=== PATIENT | male | born 1950 | race Caucasian/White ===

== ENCOUNTER → 2018-04-18 | Day surgery (SDC) | payer OTHER ==
[~2018-04-18] MED LIST: LIDOCAINE 1% PF 2 ML VIAL. ID; LIDOCAINE 2% PF Vial for OR 5 ML VIAL.; MIDAZOLAM HCL/PF 2 MG/2 ML VIAL. IV; PROPOFOL 40 ML IV; fentaNYL PF VIAL 100 MCG/2 ML VIAL IV
[2018-04-18] MEDS: IV RINGERS,LACTATED 1000ML 1,000 ML IV (08:10)
== END | disposition home or self-care (01) ==
LOC: ENDOS 07:39
DX: Z12.11 Encounter for screening for malignant neoplasm of colon (principal); K64.0 First degree hemorrhoids; K22.2 Esophageal obstruction; K21.0 Gastro-esophageal reflux disease with esophagitis; I10 Essential (primary) hypertension; Z88.5 Allergy status to narcotic agent; Z87.891 Personal history of nicotine dependence; M19.90 Unspecified osteoarthritis, unspecified site; Z88.6 Allergy status to analgesic agent; Z88.8 Allergy status to other drugs, medicaments and biological substances; Z79.899 Other long term (current) drug therapy; Z87.19 Personal history of other diseases of the digestive system
CPT/HCPCS: 43239; 45378; 88305; J2704

== ENCOUNTER 2019-06-06 07:47 | Day surgery (SDC) | payer OTHER ==
[~2019-06-06] VITALS: Ht 180.3 cm; Wt 89.0 kg
[~2019-06-06 07:47] MED LIST changes: +ALBU2.5V8 INH; +ALPH600C5 PO; +AMLO5TAB4 PO; +BUPIVACAINE-EPI 0.25%-1:200000 MPF 30 ML VIAL. ONE; +BUPR100T7 PO; +CALC-31 PO; +CALC500T30 PO; +CICL6.1H3 IH; +DULO60CA6 PO; +HYDR-2145 PO; +HYDROmorphone 2 MG/ML VIAL IV PRN; +ISOSULFAN BLUE 50 MG/5 ML VIAL. SQ ONE; +IV RINGERS,LACTATED 1000ML 1,000 ML IV SCH; -LIDOCAINE 1% PF 2 ML VIAL. ID; +LIDOCAINE 1% PF 2 ML VIAL. ID PRN; -LIDOCAINE 2% PF Vial for OR 5 ML VIAL.; +LISI-334 PO; -MIDAZOLAM HCL/PF 2 MG/2 ML VIAL. IV; +MORPHINE SULFATE 2 MG/ML VIAL. IV PRN; +NAPR500T8 PO; +NIAC500T26 PO; +ONDANSETRON PF 4 MG/2 ML VIAL. IV PRN; +PANT20TA2 PO; -PROPOFOL 40 ML IV; +TAMS0.4C97 PO; -fentaNYL PF VIAL 100 MCG/2 ML VIAL IV; +fentaNYL PF VIAL 100 MCG/2 ML VIAL IV PRN
[2019-06-06] MEDS ORDERED: ONDANSETRON PF 4 MG/2 ML VIAL. ONE (08:18)
[2019-06-06] MEDS ORDERED: PROPOFOL 20 ML IV ONE (08:18)
[2019-06-06] MEDS ORDERED: DEXAMETHASONE SOD PHOS 20 MG/5 ML VIAL. ONE (08:18)
[2019-06-06] MEDS ORDERED: fentaNYL PF VIAL 100 MCG/2 ML VIAL ONE (08:18)
[2019-06-06] MEDS ORDERED: LIDOCAINE 2% PF 5 ML VIAL. ONE (08:18)
[2019-06-06] MEDS ORDERED: MIDAZOLAM HCL/PF 2 MG/2 ML VIAL. ONE (08:19)
[2019-06-06] MEDS ORDERED: LIDOCAINE WITH 8.4% SOD BICARB 3 ML DISP.SYRIN. INJ ONE (08:30)
[2019-06-06] MEDS ORDERED: CLIN300C8 PO (08:38)
[2019-06-06] MEDS ORDERED: ACETAMINOPHEN 500 MG TABLET PO ONE (08:45)
--- NOTE | 2019-06-06 08:56 | PDOC1 ---
History and Physical Date of Admission Date of Admission DATE: 06/06/19 TIME: 08:53 Identification/Chief Complaint Chief Complaint Melanoma right arm Source Source: Patient History of Present Illness History of Present Illness 68-year-old male recently had excisional biopsy of a mass on the posterior right upper arm pathology shows this to be melanoma 1 mm depth with no ulceration. He is here for wide excision and sentinel lymph node biopsy. Past Medical History Cardiovascular: HTN, Hyperlipidemia Pulmonary: Asthma Past Surgical History Past Surgical History: Appendectomy, Other (abdominal surgery and brain surgery) Family History Family History: No Significant Social History Smoke: No ALCOHOL: none Drugs: None Current Medications Current Medications Current Medications Ondansetron HCl (Zofran) 4 mg PRN Q6HRS PRN IV NAUSEA/VOMITING; Start 06/06/19 at 07:00; Stop 06/07/19 at 06:59 Fentanyl Citrate (Fentanyl 2ml Vial) 25 mcg PRN Q5MIN PRN IV MILD PAIN 1-3; Start 06/06/19 at 07:00; Stop 06/07/19 at 06:59 Fentanyl Citrate (Fentanyl 2ml Vial) 50 mcg PRN Q5MIN PRN IV MODERATE TO SEVERE PAIN; Start 06/06/19 at 07:00; Stop 06/07/19 at 06:59 Morphine Sulfate (Morphine Sulfate) 1 mg PRN Q10MIN PRN IV SEVERE PAIN 7-10; Start 06/06/19 at 07:00; Stop 06/07/19 at 06:59 Ringer's Solution 1,000 ml @ 30 mls/hr Q24H IV Last administered on 06/06/19at 08:32; Start 06/06/19 at 07:00; Stop 06/06/19 at 18:59 Lidocaine HCl (Xylocaine-Mpf 1% 2ml Vial) 2 ml PRN 1X PRN ID PRIOR TO IV START; Start 06/06/19 at 07:00; Stop 06/07/19 at 06:59 Hydromorphone HCl (Dilaudid) 0.5 mg PRN Q10MIN PRN IV SEV PAIN, Second choice; Start 06/06/19 at 07:00; Stop 06/07/19 at 06:59 Cefazolin Sodium/ Dextrose 50 ml @ 100 mls/hr 1X ONCE IV ; Start 06/06/19 at 06:00; Stop 06/06/19 at 06:29; Status DC Isosulfan Blue (Isosulfan Blue) 50 mg STK-MED ONCE SQ ; Start 06/06/19 at 06:17; Stop 06/06/19 at 07:18; Status DC Bupivacaine HCl/ Epinephrine Bitart (Sensorcaine-Epi 0.25%-1:[id number] Mpf) 30 ml STK-MED ONCE .ROUTE ; Start 06/06/19 at 06:17; Stop 06/06/19 at 07:18; Status DC Propofol 20 ml @ As Directed STK-MED ONCE IV ; Start 06/06/19 at 08:18; Stop 06/06/19 at 08:19; Status DC Lidocaine HCl (Lidocaine Pf 2% Vial) 5 ml STK-MED ONCE .ROUTE ; Start 06/06/19 at 08:18; Stop 06/06/19 at 08:19; Status DC Dexamethasone Sodium Phosphate (Decadron) 20 mg STK-MED ONCE .ROUTE ; Start 06/06/19 at 08:18; Stop 06/06/19 at 08:19; Status DC Ondansetron HCl (Zofran) 4 mg STK-MED ONCE .ROUTE ; Start 06/06/19 at 08:18; Stop 06/06/19 at 08:19; Status DC Fentanyl Citrate (Fentanyl 2ml Vial) 100 mcg STK-MED ONCE .ROUTE ; Start 06/06/19 at 08:18; Stop 06/06/19 at 08:19; Status DC Midazolam HCl (Versed) 2 mg STK-MED ONCE .ROUTE ; Start 06/06/19 at 08:19; Stop 06/06/19 at 08:20; Status DC Lidocaine/Sodium Bicarbonate (Buffered Lidocaine 1%) 3 ml 1X ONCE INJ ; Start 06/06/19 at 08:30; Stop 06/06/19 at 08:31; Status DC Acetaminophen (Tylenol) 1,000 mg 1X ONCE PO Last administered on 06/06/19at 08:44; Start 06/06/19 at 08:45; Stop 06/06/19 at 08:46 Active Scripts Active Reported Clindamycin Hcl 300 Mg Capsule 300 Mg PO TID Calcium 500 + D Tablet (Calcium Carbonate/Vitamin D3) 1 Each Tablet 1 Each PO DAILY PRN Cymbalta (Duloxetine Hcl) 60 Mg Capsule.dr 1 Cap PO DAILY Alvesco (Ciclesonide) 6.1 Gm Hfa.aer.ad 6.1 Gm IH Proair Hfa Inhaler (Albuterol Sulfate) 8.5 Gm Hfa.aer.ad 1 Puff INH PRN Q6HRS PRN Lisinopril 20 Mg Tablet 20 Mg PO DAILY Niacin (Niacinamide) 500 Mg Tablet 500 Mg PO Protonix (Pantoprazole Sodium) 20 Mg Tablet.dr 40 Mg PO DAILY Norvasc (Amlodipine Besylate) 5 Mg Tablet 5 Mg PO DAILY Flomax (Tamsulosin Hcl) 0.4 Mg Cap.er.24h 0.4 Mg PO DAILY Allergies Allergies: Coded Allergies: aspirin (Verified Allergy, Severe, breathing, 06/05/19) chlorpromazine (Verified Allergy, Severe, breathing, 06/05/19) mold (Verified Allergy, Unknown, 05/30/19) Uncoded Allergies: DUST (Allergy, Unknown, 05/30/19) Physical Exam General: Alert, Oriented X3, Cooperative, No acute distress HEENT: Atraumatic, PERRLA, EOMI Lungs: Clear to auscultation, Normal air movement Heart: RRR, no murmurs Abdomen: Normal bowel sounds, Soft, No tenderness Rectal Exam: not examined Extremities: Other (melanoma right posterior upper arm biopsy site well healed) Vitals Vitals Vital Signs Date Time Temp Pulse Resp B/P (MAP) Pulse Ox O2 Delivery O2 Flow Rate FiO2 06/06/19 08:29 97.4 51 16 167/93 100 97.4 VTE Prophylaxis Ordered VTE Prophylaxis Devices: Yes VTE Pharmacological Prophylaxi: Contraindicated Assessment/Plan Assessment/Plan Melanoma right upper arm plan wide excision and sentinel lymph node biopsy JULIET ORTIZ MD Jun 06, 2019 08:56
[2019-06-06] MEDS ORDERED: SEVOFLURANE 31 TO 60 MINUTES. IH ONE (10:03)
[2019-06-06] MEDS ORDERED: GLYCOPYRROLATE 1 MG/5 ML VIAL. ONE (10:14)
[2019-06-06] MEDS ORDERED: PHENYLEPHRINE in 0.9% NACL PF 1 MG/10 ML SYRINGE. IV ONE (10:24)
--- NOTE | 2019-06-06 11:15 | PDOC4 ---
Operative Note Operative Note Date: 06/06/2019 Preoperative diagnosis: Melanoma right upper arm Postoperative diagnosis: Same Procedure: Wide excision of melanoma 2 cm margin and sentinel lymph node biopsy Surgeon: Nahum Specimen: Right upper arm wide excision 2 sentinel lymph nodes from right axilla Dictation: Patient is a 68-year-old gentleman had a excisional biopsy done of a skin lesion on the posterior upper arm right side this was 1 mm requiring wide excision and lymph node evaluation. Procedure of wide excision and sentinel lymph node biopsy was explained to the patient detail risk benefits were also discussed including bleeding infection alternatives to this procedure also discussed the patient seemed to understand and gave both verbal and written consent had the procedure performed. Patient was taken to radiology where radiotracer was injected and is brought to the operating room placed in supine position general anesthesia was initiated once patient was sleep and intubated his right arm and axilla were prepped and draped in circumferentially with ChloraPrep. Around the previous biopsy site was injected with Lymphazurin years and total and massaged for 5 minutes. The axilla was then evaluated for radiotracer was quite hot and area this area was injected percent Marcaine with epinephrine incision made 15 blade scalpel was carried into the simultaneous tissue using cautery brought hemostasis difficulty 2 nodes were removed and were quite hot and blue was also some axillary tissue sent for pathology. Attention was then turned to wide excision 2 cm margin around the previous biopsy site was marked this was excised elliptically carried down to the fascia. The specimen was marked with sutures with the short stitch being the distal and long stitch being proximal and double stitch being lateral. Wide excision wound was closed in 2 layers deep running 3-0 Vicryl and the skin was approximate for septic and a Monocryl Mastisol Steri-Strips and an Ashok wrap were used to dress the arm ax illa was closed with running 2-0 Vicryl and skin was approximate for septic and a Monocryl. Mastisol Steri-Strips and 4 x 4's were applied as a dressing. Patient was awakened and asked bated operating room taken to recovery in stable condition all sponge instrument needle counts listed as correct estimate blood loss 10 mL JULIET ORTIZ MD Jun 06, 2019 11:15
--- NOTE | 2019-06-06 11:18 | DISCH ---
DISCHARGE INSTRUCTIONS Condition on Discharge Condition on Discharge: Stable Activity After Discharge Activity Instructions for Disc: Avoid exertion Diet after Discharge Diet after Discharge: Regular Wound Incision Care Other wound/incision instructi: a shower in 24 hours Contacting the DRNeela after DC Call your doctor for: If your condition worsens Follow-Up Follow up with: Dr. Ortiz in 2 weeks JULIET ORTIZ MD Jun 06, 2019 11:18
[2019-06-06] MEDS ORDERED: HYDROcodone/APAP 5/325MG 1 TAB TABLET PO PRN ×2 (12:00)
[2019-06-06 12:20] VITALS: BP 129/76
--- NOTE | 2019-06-07 13:54 | RAD ---
Subcutaneous administration of technetium 99m labeled sulfur colloid for intraoperative sentinel lymph node identification. 06/06/2019 Indication: Melanoma Discussion: The risks and benefits of the procedure were discussed the patient. Informed consent was obtained. Approximately 1 mCi of technetium 99m labeled sulfur colloid was administered in 4 injections surrounding a scar just above the right elbow, at the melanoma resection site. Sterile dressings were applied. No immediate complications were identified. Impression: Subcutaneous administration of technetium 99m labeled sulfur colloid for intraoperative assessment: Identification
--- NOTE | 2019-06-14 14:07 | PATHOLOGY ---
[facility] Accession Number: [id number] . 01 Material submitted: . PART A: axillary tail of breast - AXILLARY TISSUE PART B: lymph node - SLN #1 PART C: lymph node - SLN #2 PART D: arm - WIDE EXCISION RIGHT UPPER ARM. Modifiers: right, upper . 01 Clinical history: . Melanoma . 02 Diagnosis: A. Fibroadipose tissue, axillary tissue: - No lymph nodes identified. . B. Lymph node, sentinel lymph node #1 hot/blue: - Negative for tumor (0/1). . C. Lymph nodes, sentinel lymph node #2 hot/not blue: - Two lymph nodes negative for tumor (0/2). . D. Skin and subcutaneous tissue, right upper arm wide re-excision: - FOCAL RESIDUAL MALIGNANT MELANOMA, JOSE ALBERTO'S LEVEL II, BRESLOW'S THICKNESS 0.58 MM, WITH SURROUNDING LENTIGINOUS MELANOCYTIC HYPERPLASIA, MARGINS FREE. SEE COMMENT. - Small incidental intradermal nevus. - Seborrheic keratosis. (JPM/db; 06/13/2019) LBQ/06/13/2019 . 02 Comment: The sentinel lymph nodes are examined at multiple levels. In addition, immunoperoxidase stains for melanoma (PANMELRED) are obtained and yield the following results: . PANMELRED (B1): Negative for tumor PANMELRED (B2): Negative for tumor PANMELRED (B3): Negative for tumor PANMELRED (B4): Negative for tumor PANMELRED (C1): Negative for tumor PANMELRED (C3): Negative for tumor . Thus, there are a total of three sentinel lymph nodes which are negative for metastatic melanoma. . Sections of the right upper arm wide re-excision show focal residual malignant melanoma, Jose Alberto's level II, Breslow's thickness 0.58 mm, with entiginous melanocytic hyperplasia. An immunoperoxidase stain for PANMELRED is obtained on block D6, and is negative because the focus of residual melanoma appears to be absent in the deeper section. The residual invasive melanoma measures approximately 19.5 mm to the deep margin, and both side margins are free of melanoma. There is a small incidental intradermal nevus in section D2, and a small seborrheic keratosis in section D8. The case is also examined by Dr. Westbrook, Dermatopathologist, who concurs with the above diagnosis. (JPM/db; 06/13/2019) . Special stain performed: Immunoperoxidase stains for PANMELRED on B1, B2, B3, B4, C1 and C3. . 02 Electronically signed: . Timoteo Booker MD, Pathologist NPI- [id number] . 01 Gross description: . A. The specimen is received in formalin, labeled "Christiano Vincent, axillary tissue" and consists of a segment of yellow orange lobulated tissue measuring 5.0 x 3.6 x 1.8 cm. Present within are 3 lymph node candidates measuring between 0.1 cm and 0.3 cm which are entirely submitted in A1. Additional tissue is submitted in A2-A4. . B. The specimen is received in formalin, labeled "Christiano Vincent, SLN 1 hot/blue" and consists of a segment of yellow lobulated tissue measuring 4.2 x 3.4 x 1.5 cm. Present within is a lymph node candidate measuring 2.3 x 2.0 x 0.9 cm which is entirely submitted in B1-B4 . C. The specimen is received in formalin, labeled "Christiano Vincent, SLN 2 hot/not blue" and consists of a segment of yellow-orange lobulated tissue measuring 3.0 x 2.1 x 1.3 cm. Present within is a lymph node candidate measuring 1.5 x 1.4 x 0.7 cm. Sectioning reveals pink-khanna cut surface. The candidate is entirely submitted in C1 and the rest of the specimen in cassettes C2-C3. . D. The specimen is received in formalin, labeled "Christiano Vincent, wide excision right upper arm" and consists of a blue dyed oriented skin ellipse measuring 7.7 x 3.9 x 1.1 cm. A long suture at one tip/end designates proximal (12:00), a short suture at the opposite tip/end designates distal (6:00), and a double stitch in the middle of one side designates lateral (9:00). It is inked as follows: 12-3:00 yellow, 3-6:00 blue, 6-9-12 o'clock black. Present on the surface is a well healed previous biopsy site/scar measuring 1.1 x 1.0 cm which extends 1.2 cm from the nearest peripheral edge (9:00). A slightly raised lesion is present, 0.9 cm from the 6:00 tip and 0.4 cm from the 6-7:00 peripheral edge which measures 0.3 x 0.3 cm. Sectioning reveals extensively blue dyed cut surfaces throughout. Chimney Sweeper sections to include the entire previous biopsy site are submitted as follows: . D1: Trisected 12:00 tip D2-D7: Entire previous biopsy site D8: Lesion near 6:00 tip D9: 6:00 tip, bisected (SDY; 06/07/2019) SYU/SYU . 02 Pathologist provided ICD-10: C43.61, D22.61, L82.1 . 02 CPT . 280528, 300451, 637713, 933401, [id number] Specimen Comment: A courtesy copy of this report has been sent to Specimen Comment: [phone]. Specimen Comment: Report sent to Performed at: [facility] [address], [place] [id number] MD Ayan Diaz MD Phone: [phone] Performed at: 02 [facility] [address], [place] [id number] MD Timoteo Booker MD Phone: [phone]
== END 2019-06-06 12:40 ==
LOC: SURG 07:47 → EEVIPCON 09:45 → EDBD 10:15 → SURG 12:40
PROVIDERS: ATTEND Surgery
DX: C43.61 Malignant melanoma of right upper limb, including shoulder (principal); R59.1 Generalized enlarged lymph nodes
CPT/HCPCS: 38525; 38792; 88304; 88305; 88307; 88342; 96374; A7015; A9541; J0696; J1100; J2001; J2250; J2370; J2405; J2704; J3010; J3490; Q9968

== ENCOUNTER 2020-01-26 22:02 | Inpatient (IN) | payer OTHER ==
[~2020-01-26] VITALS: Ht 180.3 cm; Wt 92.4 kg
[~2020-01-26 22:02] MED LIST changes: -BUPIVACAINE-EPI 0.25%-1:200000 MPF 30 ML VIAL. ONE; +CLIN300C8 PO; -HYDROmorphone 2 MG/ML VIAL IV PRN; -ISOSULFAN BLUE 50 MG/5 ML VIAL. SQ ONE; -IV RINGERS,LACTATED 1000ML 1,000 ML IV SCH; -LIDOCAINE 1% PF 2 ML VIAL. ID PRN; -MORPHINE SULFATE 2 MG/ML VIAL. IV PRN; -ONDANSETRON PF 4 MG/2 ML VIAL. IV PRN; -fentaNYL PF VIAL 100 MCG/2 ML VIAL IV PRN
--- NOTE | 2020-01-26 22:51 | PHYS DOC ---
Past Medical History Past Medical History: Hypertension Smoking Status: Unknown if ever smoked Alcohol Use: None The HEART Score for CP Pts HEART Score for Chest Pain: HEART Score for Chest Pain Response (Comments) Value History Slighlty/Non-Suspicious 0 ECG Nonspecific Repolarizatio 1 Age > 65 2 Risk Factors 1 or 2 Risk Factors 1 Troponin >1-<3x Normal Limit 1 Total 5 Risk Factors: Risk Factors: DM, Current or recent (<one month) smoker, HTN, HLP, family history of CAD, obesity. Risk Scores: Score 0 - 3: 2.5% MACE over next 6 weeks - Discharge Home Score 4 - 6: 20.3% MACE over next 6 weeks - Admit for Clinical Observation Score 7 - 10: 72.7% MACE over next 6 weeks - Early Invasive Strategies Adult General Chief Complaint Chief Complaint: CHEST PAIN-CARDIAC NATURE HPI HPI 69-year-old male presents to the emergency department with complaints of chest pain that started around 2019. He describes as a squeezing sensation, worse with deep breath. Patient denies any heart history coronary disease or history of stent placement. Patient received aspirin as well as nitroglycerin prior to his arrival. Heart rate 50, blood pressure 112/51. Nothing makes his pain better. Patient denies any nausea or vomiting, headache or visual change. Patient denies any abdominal pain. It is of note patient is in the custody of correctional facility. Review of Systems Review of Systems Constitutional: Denies fever or chills [] Eyes: Denies change in visual acuity, redness, or eye pain [] HENT: Denies nasal congestion or sore throat [] Respiratory: Denies cough or shortness of breath [] Cardiovascular: No additional information not addressed in HPI [] GI: Denies abdominal pain, nausea, vomiting, bloody stools or diarrhea [] : Denies dysuria or hematuria [] Musculoskeletal: Denies back pain or joint pain [] Integument: Denies rash or skin lesions [] Neurologic: Denies headache, focal weakness or sensory changes [] Endocrine: Denies polyuria or polydipsia [] All other systems were reviewed and found to be within normal limits, except as documented in this note. Current Medications Current Medications Current Medications Medications (Trade) Dose Ordered Sig/Lucien Start Time Stop Time Status Last Admin Dose Admin Acetaminophen (Tylenol) 650 mg PRN Q4HRS PRN 01/26/20 23:30 01/27/20 23:29 UNV Heparin Sodium (Porcine) (Heparin Sodium) 2,400 unit PRN Q6HRS PRN 01/26/20 23:30 UNV Heparin Sodium/ Dextrose 250 ml @ 0 mls/hr CONT PRN 01/26/20 23:30 UNV Morphine Sulfate (Morphine Sulfate) 2 mg PRN Q2HR PRN 01/26/20 23:30 01/27/20 23:29 UNV Ondansetron HCl (Zofran) 4 mg PRN Q8HRS PRN 01/26/20 23:30 01/27/20 23:29 UNV Allergies Allergies Allergies Coded Allergies Type Severity Reaction Last Updated Verified aspirin Allergy Severe breathing 06/05/19 Yes chlorpromazine Allergy Severe breathing 06/05/19 Yes mold Allergy Unknown 05/30/19 Yes Uncoded Allergies Type Severity Reaction Last Updated Verified DUST Allergy Unknown 05/30/19 Physical Exam Physical Exam Constitutional: Well developed, well nourished, no acute distress, non-toxic appearance. [] HENT: Normocephalic, atraumatic, bilateral external ears normal, oropharynx moist, no oral exudates, nose normal. [] Eyes: PERRLA, EOMI, conjunctiva normal, no discharge. [] Neck: Normal range of motion, no tenderness, supple, no stridor. [] Cardiovascular:Heart rate regular rhythm, no murmur [] Lungs & Thorax: Bilateral breath sounds clear to auscultation [] Abdomen: Bowel sounds normal, soft, no tenderness, no masses, no pulsatile masses. [] Skin: Warm, dry, no erythema, no rash. [] Back: No tenderness, no CVA tenderness. [] Extremities: No tenderness, no cyanosis, no clubbing, ROM intact, no edema. [] Neurologic: Alert and oriented X 3, normal motor function, normal sensory function, no focal deficits noted. [] Psychologic: Affect normal, judgement normal, mood normal. [] Current Patient Data Vital Signs Vital Signs Date Time Temp Pulse Resp B/P (MAP) Pulse Ox O2 Delivery O2 Flow Rate FiO2 01/26/20 23:00 24 01/26/20 22:05 97.9 50 112/51 (71) 100 Room Air 97.9 Lab Values Laboratory Tests Test 01/26/20 22:08 White Blood Count 8.5 x10^3/uL (4.0-11.0) Red Blood Count 4.24 x10^6/uL (4.30-5.70) L Hemoglobin 12.4 g/dL (13.0-17.5) L Hematocrit 36.7 % (39.0-53.0) L Mean Corpuscular Volume 87 fL (79-100) Mean Corpuscular Hemoglobin 29 pg (25-35) Mean Corpuscular Hemoglobin Concent 34 g/dL (31-37) Red Cell Distribution Width 14.8 % (11.5-14.5) H Platelet Count 154 x10^3/uL (140-400) Neutrophils (%) (Auto) 64 % (31-73) Lymphocytes (%) (Auto) 25 % (24-48) Monocytes (%) (Auto) 9 % (0-9) Eosinophils (%) (Auto) 2 % (0-3) Basophils (%) (Auto) 1 % (0-3) Neutrophils # (Auto) 5.4 x10^3/uL (1.8-7.7) Lymphocytes # (Auto) 2.1 x10^3/uL (1.0-4.8) Monocytes # (Auto) 0.8 x10^3/uL (0.0-1.1) Eosinophils # (Auto) 0.2 x10^3/uL (0.0-0.7) Basophils # (Auto) 0.0 x10^3/uL (0.0-0.2) Sodium Level 141 mmol/L (136-145) Potassium Level 4.2 mmol/L (3.5-5.1) Chloride Level 106 mmol/L (98-107) Carbon Dioxide Level 27 mmol/L (21-32) Anion Gap 8 (6-14) Blood Urea Nitrogen 17 mg/dL (8-26) Creatinine 1.1 mg/dL (0.7-1.3) Estimated GFR (Cockcroft-Gault) 66.2 BUN/Creatinine Ratio 15 (6-20) Glucose Level 106 mg/dL (70-99) H Calcium Level 9.4 mg/dL (8.5-10.1) Magnesium Level 1.8 mg/dL (1.8-2.4) Total Bilirubin 0.3 mg/dL (0.2-1.0) Aspartate Amino Transferase (AST) 29 U/L (15-37) Alanine Aminotransferase (ALT) 31 U/L (16-63) Alkaline Phosphatase 60 U/L (46-116) Creatine Kinase 192 U/L (39-308) Creatine Kinase MB (Mass) 2.7 ng/mL (0.0-3.6) Creatine Kinase MB Relative Index 1.4 % (0-4) Troponin I Quantitative 0.081 ng/mL (0.000-0.055) TG-Ipf-K-Type Natriuretic Peptide 195 pg/mL (0-124) H Total Protein 6.1 g/dL (6.4-8.2) L Albumin 3.1 g/dL (3.4-5.0) L Albumin/Globulin Ratio 1.0 (1.0-1.7) Laboratory Tests 01/26/20 22:08 Laboratory Tests 01/26/20 22:08 EKG EKG EKG reveals evidence of left bundle branch block, normal axis, heart rate 52 interpretation time 2208 [] Radiology/Procedures Radiology/Procedures [] Course & Med Decision Making Course & Med Decision Making Pertinent Labs and Imaging studies reviewed. (See chart for details) [] 69-year-old male presents to the emergency department with complaints of chest pain that started around 2019. He describes as a squeezing sensation, worse with deep breath. Patient denies any heart history coronary disease or history of stent placement. Patient received aspirin as well as nitroglycerin prior to his arrival. Heart rate 50, blood pressure 112/51. Nothing makes his pain better. Patient denies any nausea or vomiting, headache or visual change. Minnie ent denies any abdominal pain. It is of note patient is in the custody of correctional facility. Laboratory studies reviewed, mild troponin elevation 0.081. Heparin gtt initiated in ER NTG/ASA given prior to arrival NTG SL - dropped BP to the 80's Will apply 1/2 NTG and morphien as needed Cardiology consult HEART Score 5 Dragon Disclaimer Dragon Disclaimer This electronic medical record was generated, in whole or in part, using a voice recognition dictation system. Departure Departure Impression: Primary Impression: Chest pain Additional Impressions: Elevated troponin Hypertension Disposition: ADMITTED INPATIENT Admitting Physician: MEGAN Condition: STABLE Referrals: ALANNAH COSTA DO (PCP) Critical Care Time Critical care time was 35 minutes exclusive of procedures. Problem Qualifiers Primary Impression: Chest pain Chest pain type: unspecified Qualified Codes: R07.9 - Chest pain, unspecified Additional Impressions: Hypertension Hypertension type: essential hypertension Qualified Codes: I10 - Essential (primary) hypertension KIM MOSS MD Jan 26, 2020 22:51
[2020-01-26] MEDS ORDERED: MORPHINE SULFATE 2 MG/ML VIAL. ONE (22:58)
[2020-01-26] MEDS ORDERED: ONDANSETRON PF 4 MG/2 ML VIAL. ONE (22:58)
[2020-01-26 23:00] LABS: BASO % 1 % (0-3); EOS # 0.2 x10^3/uL (0.0-0.7); EOS % 2 % (0-3); HEMATOCRIT 36.7 % (39.0-53.0); HEMOGLOBIN 12.4 g/dL (13.0-17.5); LYMPH # 2.1 x10^3/uL (1.0-4.8); LYMPH % 25 % (24-48); MEAN CORPUSCULAR HEMOGLOBIN 29 pg (25-35); MEAN CORPUSCULAR HGB CONC 34 g/dL (31-37); MEAN CORPUSCULAR VOLUME 87 fL (79-100); MONO # 0.8 x10^3/uL (0.0-1.1); MONO % 9 % (0-9); NEUT # 5.4 x10^3/uL (1.8-7.7); NEUT % 64 % (31-73); PLATELET COUNT 154 x10^3/uL (140-400); RED BLOOD COUNT 4.24 x10^6/uL (4.30-5.70); RED CELL DISTRIBUTION WIDTH 14.8 % (11.5-14.5); WHITE BLOOD COUNT 8.5 x10^3/uL (4.0-11.0)
[2020-01-26] MEDS ORDERED: MORPHINE SULFATE 2 MG/ML VIAL. IV ONE (23:00)
[2020-01-26] MEDS ORDERED: ONDANSETRON PF 4 MG/2 ML VIAL. IVP ONE (23:00)
--- NOTE | 2020-01-26 23:02 | EKG ---
[facility] [address] [place] [address] Test Date: 2020-01-26 Test Time: 22:06:56 Pat Name: NELY GUZMAN Department: Room: Gender: M Fish Icer: : 1950 Requested By: KIM MOSS Order Number: [id number] Reading MD: Measurements Intervals [place] Rate: 52 P: 90 [place]: 214 QRS: 12 QRSD: 146 T: -91 QT: 468 QTc: 437 Interpretive Statements SINUS RHYTHM COMPLEX(ES) WITH ABERRANT INTRAVENTRICULAR CONDUCTION NON SPECIFIC INTRAVENTRICULAR BLOCK ABNORMAL ECG RI6.01 No previous ECG available for comparison
[2020-01-26 23:08] LABS: CALCIUM 9.4 mg/dL (8.5-10.1); CREATININE 1.1 mg/dL (0.7-1.3); GFR 66.2; POTASSIUM 4.2 mmol/L (3.5-5.1)
[2020-01-26 23:13] LABS: ALBUMIN 3.1 g/dL (3.4-5.0); MAGNESIUM 1.8 mg/dL (1.8-2.4); TOTAL BILIRUBIN 0.3 mg/dL (0.2-1.0); TOTAL PROTEIN 6.1 g/dL (6.4-8.2)
[2020-01-26] MEDS ORDERED: ONDANSETRON PF 4 MG/2 ML VIAL. IV PRN (23:45)
[2020-01-26] MEDS ORDERED: HEPARIN for IV BOLUS 10,000 UNIT/10 ML VIAL. IV PRN (23:45)
[2020-01-26] MEDS ORDERED: ACETAMINOPHEN 325 MG TABLET. PO PRN (23:45)
[2020-01-26] MEDS ORDERED: HEPARIN for IV BOLUS 10,000 UNIT/10 ML VIAL. IV ONE (23:45)
[2020-01-26] MEDS ORDERED: NITROGLYCERIN OINT 1 GM PACKET. TP ONE (23:45)
[2020-01-26] MEDS: MORPHINE SULFATE 2 MG/ML VIAL. IV PRN (23:57)
[2020-01-27] VITALS (19 sets, daily range): BP systolic 69–156; BP diastolic 40–79
--- NOTE | 2020-01-27 00:02 | RAD ---
PORTABLE CHEST 1V INDICATION: Chest pain. COMPARISON STUDY: None. FINDINGS: Lungs: Normal lung volume. Right basilar nodular opacities. The tracheobronchial tree and hilar structures are normal. Pleura: No pleural effusion or pneumothorax. Heart and Mediastinum: Cardiomegaly. Atherosclerosis of the thoracic aorta. IMPRESSION: Right basilar nodular opacities, possibly an infectious/inflammatory process. Recommend follow-up PA and lateral chest radiograph in 6-8 weeks after appropriate medical therapy to ensure resolution, given history of malignancy. Electronically signed by: Gary Suarez MD (01/26/2020 11:58 PM) [id number]
[2020-01-27] MEDS: HEPARIN 25,000UTS/250ML PREMIX 250 ML IV PRN ×2 (00:05→20:25)
[2020-01-27] MEDS ORDERED: MAGNESIUM SULFATE 2GM 50 ML IV ONE (03:00)
--- NOTE | 2020-01-27 03:44 | EKG ---
[facility] [address] [place] [address] Test Date: 2020-01-27 Test Time: 03:35:21 Pat Name: NELY GUZMAN Department: Room: 211 Gender: M Zigzag Elastic Attacher: SHANNON : 1950 Requested By: TASNEEM DORMAN Order Number: [id number] Reading MD: Measurements Intervals [place] Rate: 52 P: 56 [place]: 220 QRS: 3 QRSD: 146 T: -56 QT: 450 QTc: 421 Interpretive Statements SINUS RHYTHM PROLONGED [place] INTERVAL LEFT BUNDLE BRANCH BLOCK ABNORMAL ECG RI6.02 No previous ECG available for comparison
[2020-01-27] MEDS: MORPHINE SULFATE 2 MG/ML VIAL. IV PRN ×4 (05:34→21:00)
--- NOTE | 2020-01-27 05:52 | NUR ---
Pt arrived to unit at approx 0115 accompanied by ED RN and two guards. Pt stating 10/10 chest pain in the left chest, grabbing chest and facial grimacing. applied O2 @ 2L, unable to give Morphine due to low BP- see vital sign spreadsheet. Other vital signs wnl. Notified Dr. Leslie of low BP, Dopamine gtt started. Stat EKG obtained. Around 0400 pt began vomiting. Two guards at bedside, call light in reach. Bed in low locked position, reminded pt to call if assistance is needed. Will continue to monitor.
[2020-01-27 05:55] LABS: HEMOGLOBIN 14.9 g/dL (13.0-17.5); RED BLOOD COUNT 5.26 x10^6/uL (4.30-5.70); RED CELL DISTRIBUTION WIDTH 15.1 % (11.5-14.5); WHITE BLOOD COUNT 15.6 x10^3/uL (4.0-11.0)
[2020-01-27 08:01] LABS: BILIRUBIN,URINE SMALL (NEG); CLARITY,URINE CLEAR; COLOR,URINE YELLOW; NITRITE,URINE NEGATIVE (NEG); PROTEIN,URINE NEGATIVE (NEG-TRACE)
[2020-01-27 08:24] LABS: BACTERIA,URINE 0 /HPF (0-FEW); RBC,URINE 0 /HPF (0-2); WBC,URINE 0 /HPF (0-4)
--- NOTE | 2020-01-27 11:41 | PDOC2 ---
ANAIS CARLOS SHOE STITCHER ODD 01/27/20 1141: CARDIAC CONSULT DATE OF CONSULT Date of Consult DATE: 01/27/20 TIME: 11:31 REASON FOR CONSULT Reason for Consult: Chest pain, elevated trop REFERRING PHYSICIAN Referring Physician: Dr. Bowman SOURCE Source: Chart review, Patient HISTORY OF PRESENT ILLNESS HISTORY OF PRESENT ILLNESS This is a yo male who presented secondary to chest pain. Patient is from [facility]. Yesterday evening, began having pressure in his central chest. Radiated up to his neck. Sidney slightly short of breath and as was unable to take a deep breath due to the pain. No diaphoresis, palpitations, or LE edema. No episode of nausea/vomiting yesterday, but is having some today. Pain significantly worse with deep breathing. Central chest also slightly tender to touch. Reports pain is in his upper back as well. No prior h/o CAD. Troponin noted to be mildly elevated. Heparin gtt was initiated. CXR with possible infectious/inflammatory process. Has been hypotensive and is on Dopamine gtt. ` PAST MEDICAL HISTORY Cardiovascular: HTN Pulmonary: COPD GI: Diverticulosis, GERD Musculoskeletal: Osteoarthritis Renal/: Benign prostatic enlarg. PAST SURGICAL HISTORY Past Surgical History: Colon Resection, Other (brain tumor removal) FAMILY HISTORY Family History: Hypertension SOCIAL HISTORY Smoke: No ALCOHOL: none Drugs: Other (quit) Lives: Roommate CURRENT MEDICATIONS CURRENT MEDICATIONS Current Medications Medications (Trade) Dose Ordered Sig/Lucien Route PRN Reason Start Time Stop Time Status Last Admin Dose Admin Morphine Sulfate (Morphine Sulfate) 2 mg 1X ONCE IV 01/26/20 23:00 01/26/20 23:01 DC 01/26/20 23:00 Ondansetron HCl (Zofran) 4 mg 1X ONCE IVP 01/26/20 23:00 01/26/20 23:01 DC 01/26/20 23:05 Heparin Sodium (Porcine) (Heparin Sodium) 4,000 unit 1X ONCE IV 01/26/20 23:45 01/26/20 23:46 DC 01/26/20 23:56 Heparin Sodium/ Dextrose 250 ml @ 0 mls/hr CONT PRN IV PER PROTOCOL 01/26/20 23:30 01/27/20 00:05 Ondansetron HCl (Zofran) 4 mg PRN Q8HRS PRN IV NAUSEA/VOMITING 01/26/20 23:45 01/27/20 23:44 01/27/20 04:07 Morphine Sulfate (Morphine Sulfate) 2 mg PRN Q2HR PRN IV PAIN 01/26/20 23:45 01/27/20 23:44 01/27/20 08:06 Nitroglycerin (Nitro-Bid Oint) 0.5 inch 1X ONCE TP 01/26/20 23:45 01/26/20 23:46 DC 01/27/20 00:08 Magnesium Sulfate 50 ml @ 25 mls/hr 1X ONCE IV 01/27/20 03:00 01/27/20 04:59 DC 01/27/20 03:29 Dopamine HCl/ Dextrose 250 ml @ 35.1 mls/hr CONT PRN IV PER PROTOCOL 01/27/20 03:00 01/27/20 03:53 ALLERGIES ALLERGIES: Coded Allergies: aspirin (Verified Allergy, Severe, breathing, 06/05/19) chlorpromazine (Verified Allergy, Severe, breathing, 06/05/19) mold (Verified Allergy, Unknown, 05/30/19) Uncoded Allergies: DUST (Allergy, Unknown, 05/30/19) ROS Review of System 14 point ROS conducted with pertinent positives noted above in HPI PHYSICAL EXAM General: Alert, Oriented X3, Cooperative, No acute distress HEENT: Atraumatic, Mucous membr. moist/pink Lungs: Clear to auscultation, Other (central chest tenderness upon palpitaiton) Heart: Regular rate, Normal S1, Normal S2 Abdomen: Soft, No tenderness Extremities: No edema, Normal pulses Skin: No significant lesion Neuro: Normal speech, Sensation intact Psych/Mental Status: Mental status NL, Mood NL MUSCULOSKELETAL: Osteoarthritic changes both hands VITALS/I&O VITALS/I&O: Vital Signs Date Time Temp Pulse Resp B/P (MAP) Pulse Ox O2 Delivery O2 Flow Rate FiO2 01/27/20 10:48 98.2 54 20 127/65 (85) 98 Room Air 98.2 01/27/20 07:00 2.0 I & O 01/26/20 01/26/20 01/27/20 15:00 23:00 07:00 Intake Total 0 ml Balance 0 ml LABS Lab: Laboratory Tests Test 01/26/20 22:08 01/27/20 02:00 01/27/20 04:56 01/27/20 05:15 White Blood Count 8.5 x10^3/uL (4.0-11.0) 15.6 x10^3/uL (4.0-11.0) H Red Blood Count 4.24 x10^6/uL (4.30-5.70) L 5.26 x10^6/uL (4.30-5.70) Hemoglobin 12.4 g/dL (13.0-17.5) L 14.9 g/dL (13.0-17.5) Hematocrit 36.7 % (39.0-53.0) L 46.0 % (39.0-53.0) Mean Corpuscular Volume 87 fL (79-100) 88 fL (79-100) Mean Corpuscular Hemoglobin 29 pg (25-35) 28 pg (25-35) Mean Corpuscular Hemoglobin Concent 34 g/dL (31-37) 33 g/dL (31-37) Red Cell Distribution Width 14.8 % (11.5-14.5) H 15.1 % (11.5-14.5) H Platelet Count 154 x10^3/uL (140-400) 177 x10^3/uL (140-400) Neutrophils (%) (Auto) 64 % (31-73) Lymphocytes (%) (Auto) 25 % (24-48) Monocytes (%) (Auto) 9 % (0-9) Eosinophils (%) (Auto) 2 % (0-3) Basophils (%) (Auto) 1 % (0-3) Neutrophils # (Auto) 5.4 x10^3/uL (1.8-7.7) Lymphocytes # (Auto) 2.1 x10^3/uL (1.0-4.8) Monocytes # (Auto) 0.8 x10^3/uL (0.0-1.1) Eosinophils # (Auto) 0.2 x10^3/uL (0.0-0.7) Basophils # (Auto) 0.0 x10^3/uL (0.0-0.2) Sodium Level 141 mmol/L (136-145) Potassium Level 4.2 mmol/L (3.5-5.1) Chloride Level 106 mmol/L (98-107) Carbon Dioxide Level 27 mmol/L (21-32) Anion Gap 8 (6-14) Blood Urea Nitrogen 17 mg/dL (8-26) Creatinine 1.1 mg/dL (0.7-1.3) Estimated GFR (Cockcroft-Gault) 66.2 BUN/Creatinine Ratio 15 (6-20) Glucose Level 106 mg/dL (70-99) H Calcium Level 9.4 mg/dL (8.5-10.1) Magnesium Level 1.8 mg/dL (1.8-2.4) Total Bilirubin 0.3 mg/dL (0.2-1.0) Aspartate Amino Transferase (AST) 29 U/L (15-37) Alanine Aminotransferase (ALT) 31 U/L (16-63) Alkaline Phosphatase 60 U/L (46-116) Creatine Kinase 192 U/L (39-308) Creatine Kinase MB (Mass) 2.7 ng/mL (0.0-3.6) Creatine Kinase MB Relative Index 1.4 % (0-4) Troponin I Quantitative 0.081 ng/mL (0.000-0.055) 0.061 ng/mL (0.000-0.055) 0.101 ng/mL (0.000-0.055) PD-Tbt-U-Type Natriuretic Peptide 195 pg/mL (0-124) H Total Protein 6.1 g/dL (6.4-8.2) L Albumin 3.1 g/dL (3.4-5.0) L Albumin/Globulin Ratio 1.0 (1.0-1.7) Heparin Anti-Xa Act, Unfractionated 0.35 IU/mL (0.30-0.70) Test 01/27/20 07:25 Urine Collection Type Unknown Urine Color Yellow Urine Clarity Clear Urine pH 6.0 (<5.0-8.0) Urine Specific [place] 1.025 (1.000-1.030) Urine Protein Negative mg/dL (NEG-TRACE) Urine Glucose (UA) Negative mg/dL (NEG) Urine Ketones (Stick) Negative mg/dL (NEG) Urine Blood Negative (NEG) Urine Nitrite Negative (NEG) Urine Bilirubin Small (NEG) Urine Urobilinogen Dipstick 1.0 mg/dL (0.2 mg/dL) Urine Leukocyte Esterase Negative (NEG) Urine RBC 0 /HPF (0-2) Urine WBC 0 /HPF (0-4) Urine Bacteria 0 /HPF (0-FEW) Urine Mucus Marked /LPF Laboratory Tests 01/26/20 22:08 01/27/20 04:56 Laboratory Tests 01/26/20 22:08 ASSESSMENT/PLAN ASSESSMENT/PLAN 1. Chest pain, atypical features. EKG with LBBB. No previous for comparison. No previous h/o CAD. 2. NSTEMI; highest 0.1. On heparin gtt 3. H/o hypertension with present hypotension; on Dopamine 4. Hyperlipidemia 5. COPD 6. GERD 7. H/o drug abuse. Recommendations Echo to assess LV systolic function Repeat trop ASA Lipids Lactic acid 500cc fluid bolus. Will plan for further ischemic workup given chest pain, risk factors, LBBB, and NSTEMI. Will plan for MPI in am if no further troponin elevation is noted. If repeat troponin significantly elevated, will plan for LHC in am Supportive care INÉS NIETO MD 01/27/202043: CARDIAC CONSULT ASSESSMENT/PLAN ASSESSMENT/PLAN Patient seen and examined. Agree with RELAY MAN's assessment and plan,. CP with atypical features. Trop level slightly elevated. 2D echo showed normal LVF Agree with MPI tomorrow to rule out ischemia Continue IVF and titrate dopamine off as tolerated Thank you for our consultation ANAIS CARLOS APRN Jan 27, 2020 11:41 INÉS NIETO MD Jan 27, 2020 20:44
[2020-01-27] MEDS ORDERED: IV NORMAL SALINE 500ML BAG 500 ML IV ONE (11:45)
[2020-01-27 12:12] LABS: CHOLESTEROL/HDL RATIO 3.7
--- NOTE | 2020-01-27 12:22 | HP ---
ADMIT DATE: 01/27/2020 CHIEF COMPLAINT: Chest pain. HISTORY OF PRESENT ILLNESS: The patient is a pleasant middle-aged male, who is incarcerated, presented with chest pain, rated at 7/10. He has associated nausea. It has been occurring for several days. He does have a little bump in his troponin and some subtle EKG changes. He has now been admitted to the telemetry floor where he is on a heparin drip and dopamine drip. He has had some hypotension. We consulted Cardiology. PAST MEDICAL HISTORY: Malignant melanoma. ALLERGIES: ASPIRIN AND MOLD. FAMILY HISTORY: Coronary artery disease. SOCIAL HISTORY: He is incarcerated, does not drink, smoke or take drugs. MEDICATIONS: Reviewed, please refer to the MRAD. REVIEW OF SYSTEMS: GENERAL: No history of weight change, weakness or fevers. SKIN: No bruising, hair changes or rashes. EYES: No blurred, double or loss of vision. NOSE AND THROAT: No history of nosebleeds, hoarseness or sore throat. CARDIAC: He complains of chest pain. LUNGS: Denies cough, hemoptysis, wheezing or shortness of breath. GASTROINTESTINAL: Denies changes in appetite, nausea, vomiting, diarrhea or constipation. GENITOURINARY: No history of frequency, urgency, hesitancy or nocturia. NEUROLOGIC: Denies history of numbness, tingling, tremor or weakness. PSYCHIATRIC: No history of panic, anxiety or depression. ENDOCRINE: No history of heat or cold intolerance, polyuria or polydipsia. EXTREMITIES: Denies muscle weakness, joint pain, pain on walking or stiffness. PHYSICAL EXAMINATION VITALS: Within normal limits and are stable. GENERAL: No apparent distress. Alert and oriented. HEENT: Normal cephalic atraumatic, external auditory canals are patent EYES: Extraocular muscles are intact, pupils are equally round and reactive to light and accommodation MUSKULOSKELETAL: Well developed, well nourished, good range of motion ENDOCRINE: No thyromegaly was palpated LYMPHATICS: No cervical chain or axillary nodes were noted HEMATOPOIETIC: No bruising NECK: Supple, no JVD, no thyromegaly was noted. LUNGS: Clear to auscultation in all lung marcial without rhonchi or wheezing. HEART: RRR, S1, S2 present. Peripheral pulses intact, no obvious murmurs were noted. ABDOMEN: Soft, nontender. Positive bowel sounds no organomegaly, normal bowel sounds. EXTREMITIES: Without any cyanosis, clubbing, or edema. Pedal pulses intact, Homans sign is negative. NEUROLOGIC: Normal speech, normal tone. A & O x3, moves all extremities, no obvious focal deficits. PSYCHIATRIC: Normal affect, normal mood. Stable. SKIN: No ulcerations or rashes, good skin turgor, no jaundice. VASCULAR: Good capillary refill, neurovascular bundle appears to be intact. LABORATORY DATA: His troponin is high at 0.1. ASSESSMENT AND PLAN: Chest pain, rule out coronary artery disease. The patient will be admitted. We will check serial enzymes, serial EKGs. Consult Cardiology. Home meds, deep thrombosis prophylaxis, heparin drip, dopamine drip, replace mag. ELZA HAYDEN DO DR: XANDER/cale JOB#: [id number] / [id number]
[2020-01-27] MEDS: IV NORMAL SALINE 1000ML BAG 1,000 ML IV SCH (12:31)
--- NOTE | 2020-01-27 15:20 | CARD ---
MR#: [id number] Date of Study: 01/27/2020 Ordering Physician: ANAIS CARLOS, Referring Physician: ANAIS CARLOS, Tech: Tana Phillips [facility] APPROVED REPORT EXAM: Two-dimensional and M-mode echocardiogram with Doppler and color Doppler. Other Information Quality : Fair INDICATION Chest Pain 2D DIMENSIONS RVDd2.6 (2.9-3.5cm)Left Atrium(2D)3.2 (1.6-4.0cm) IVSd1.2 (0.7-1.1cm)Aortic Root(2D)3.2 (2.0-3.7cm) LVDd5.7 (3.9-5.9cm)LVOT Diameter2.1 (1.8-2.4cm) PWd1.2 (0.7-1.1cm)LVDs3.5 (2.5-4.0cm) FS (%) 30.0 %SV107.2 ml Aortic Valve AoV Peak Leeroy.139.0cm/sAoV VTI28.3cm AO Peak GR.7.7mmHgLVOT VTI 24.85cm AO Mean GR.4mmHgAVA (VTI)2.90cm2 AI P 1/2 Byhb731ew Mitral Valve MV E Yncammub84.7cm/sMV DECEL FCRA206na MV A Xtrbpkpq51.4cm/sE/A Ratio0.9 TDI Lateral E' P. V7.08cm/sMedial E' P. V5.08cm/s E/Lateral E'11.7E/Medial E'16.3 Tricuspid Valve TR P. Rjqapaft255gn/sRAP UZBSLNHG4mwLx TR Peak Gr.91rxAiXWGK77fiGd Pulmonary Vein S1 Ufemalyw66.6cm/sS2 Glijqtym03.08cm/s D2 Kflwmsmv88.1cm/s LEFT VENTRICLE The left ventricle is normal size. There is mild concentric left ventricular hypertrophy. The left ve ntricular systolic function is normal. The ejection fraction is 50 to 55%. Septal motion consistent w ith conduction abnormality. Transmitral Doppler flow pattern is Grade I-abnormal relaxation pattern. RIGHT VENTRICLE The right ventricle is mildly dilated. The right ventricular systolic function is normal. ATRIA The left atrium size is normal. The right atrium size is normal. The interatrial septum is intact wit h no evidence for an atrial septal defect or patent foramen ovale as noted on 2-D or Doppler imaging. AORTIC VALVE The aortic valve is calcified but opens well. Doppler and Color Flow revealed mild aortic regurgitati on. There is no significant aortic valvular stenosis. MITRAL VALVE The mitral valve is calcified but opens well. There is no evidence of mitral valve prolapse. There is no mitral valve stenosis. Doppler and Color-flow revealed trace to mild mitral regurgitation. TRICUSPID VALVE The tricuspid valve is normal in structure and function. Doppler and Color Flow revealed trace tricus pid regurgitation. The PA pressure was estimated at 27 mmHg. There is no tricuspid valve stenosis. PULMONIC VALVE The pulmonic valve is not well visualized. Doppler and Color Flow revealed no pulmonic valvular regur gitation. There is no pulmonic valvular stenosis. GREAT VESSELS The aortic root is normal in size. The ascending aorta is not well seen. The IVC is normal in size an d collapses >50% with inspiration. PERICARDIAL EFFUSION There is no evidence of significant pericardial effusion. Critical Notification Critical Value: No <Conclusion> The left ventricle is normal size. The left ventricular systolic function is normal. The ejection fraction is 50 to 55%. There is mild concentric left ventricular hypertrophy. Doppler and Color Flow revealed mild aortic regurgitation. There is no significant aortic valvular stenosis. Doppler and Color-flow revealed trace to mild mitral regurgitation. Doppler and Color Flow revealed trace tricuspid regurgitation. The PA pressure was estimated at 27 mmHg. Signed by : Hansel Feldman MD Electronically Approved : 01/27/2020 15:19:39
--- NOTE | 2020-01-27 16:33 | NUR ---
2 UFH within range, (0.35 and 0.33). no rate change and UFH ordered for 01/28/20 at 0500.
[2020-01-28] MEDS: IV NORMAL SALINE 1000ML BAG 1,000 ML IV SCH (02:04)
[2020-01-28] MEDS: MORPHINE SULFATE 2 MG/ML VIAL. IV PRN ×5 (02:05→12:24)
[2020-01-28] MEDS ORDERED: ONDANSETRON PF 4 MG/2 ML VIAL. IVP PRN (02:15)
[2020-01-28 03:35] VITALS: BP 140/74
[2020-01-28] MEDS ORDERED: SODIUM BICARB ADULT 8.4% 50 MEQ/50 ML DISP.SYRIN. ONE (06:00)
[2020-01-28] MEDS ORDERED: EPINEPHrine SYRINGE 1 MG/10 ML SYRINGE ONE (06:00)
[2020-01-28] MEDS ORDERED: CALCIUM CHLORIDE 1,000 MG/10 ML DISP.SYRIN ONE (06:00)
[2020-01-28 07:41] VITALS: BP 176/79
--- NOTE | 2020-01-28 07:45 | NUR ---
Christiano is resting quietly with eyes closed. guard at bedside.
[2020-01-28] MEDS ORDERED: ASPIRIN ENTERIC COATED 81 MG TABLET.DR. PO SCH (08:00)
--- NOTE | 2020-01-28 08:05 | NUR ---
resting in bed. states his pain is a "10". o2 applied at 2l. states he is short of breath. medicated with morphine. baltazarmonroemelissa remains at bedside.
[2020-01-28] MEDS ORDERED: REGADENOSON 0.4 MG/5 ML DISP.SYRIN. IV ONE (08:30)
[2020-01-28] MEDS ORDERED: amLODIPine BESYLATE 5 MG TABLET PO SCH (09:00)
[2020-01-28] MEDS ORDERED: TAMSULOSIN 0.4 MG CAP.ER.24H. PO SCH (09:00)
--- NOTE | 2020-01-28 09:05 | NUR ---
transport here. iv's continue. remains npo.
--- NOTE | 2020-01-28 10:24 | NUR ---
returns to room. pain is worse medicated with morphine
[2020-01-28 10:47] VITALS: BP 139/68
[2020-01-28 11:14] LABS: BASO % 0 % (0-3); EOS % 0 % (0-3); HEMOGLOBIN 13.7 g/dL (13.0-17.5); LYMPH % 7 % (24-48); MEAN CORPUSCULAR HEMOGLOBIN 29 pg (25-35); MEAN CORPUSCULAR HGB CONC 33 g/dL (31-37); MEAN CORPUSCULAR VOLUME 87 fL (79-100); MONO # 1.3 x10^3/uL (0.0-1.1); MONO % 9 % (0-9); NEUT # 12.3 x10^3/uL (1.8-7.7); NEUT % 84 % (31-73); PLATELET COUNT 112 x10^3/uL (140-400); RED CELL DISTRIBUTION WIDTH 15.1 % (11.5-14.5); WHITE BLOOD COUNT 14.7 x10^3/uL (4.0-11.0)
--- NOTE | 2020-01-28 12:12 | PDOC ---
[employer] PROGRESS NOTE Chief Complaint Chief Complaint Chest pain rule out coronary disease Malignant melanoma History of Present Illness History of Present Illness [id number] Patient seen and examined Discussed with display and banner designer and his nurse Patient is getting a stress test today His compliance officer at present Hope to discharge as second and if the stress test is negative? Vitals/I&O Vitals/I&O: Vital Signs Date Time Temp Pulse Resp B/P (MAP) Pulse Ox O2 Delivery O2 Flow Rate FiO2 01/28/20 10:47 98.5 62 18 139/68 (91) 95 Room Air 98.5 01/28/20 08:30 2.0 I & O 01/27/20 01/27/20 01/28/20 15:00 23:00 07:00 Intake Total 0 ml 580 ml 0 ml Output Total 400 ml 300 ml Balance 0 ml 180 ml -300 ml Physical Exam General: Alert, Oriented X3, Cooperative, No acute distress Heart: Regular rate, Normal S1, Normal S2 Abdomen: Soft, No tenderness Extremities: No edema, Normal pulses Skin: No significant lesion Labs Labs: Laboratory Tests Test 01/27/20 13:45 01/27/20 18:10 01/28/20 03:03 01/28/20 10:20 Heparin Anti-Xa Act, Unfractionated 0.33 IU/mL (0.30-0.70) 0.27 IU/mL (0.30-0.70) 0.43 IU/mL (0.30-0.70) Lactic Acid Level 3.3 mmol/L (0.4-2.0) 3.2 mmol/L (0.4-2.0) 0.8 mmol/L (0.4-2.0) Troponin I Quantitative 0.078 ng/mL (0.000-0.055) White Blood Count 14.7 x10^3/uL (4.0-11.0) Red Blood Count 4.80 x10^6/uL (4.30-5.70) Hemoglobin 13.7 g/dL (13.0-17.5) Hematocrit 42.0 % (39.0-53.0) Mean Corpuscular Volume 87 fL (79-100) Mean Corpuscular Hemoglobin 29 pg (25-35) Mean Corpuscular Hemoglobin Concent 33 g/dL (31-37) Red Cell Distribution Width 15.1 % (11.5-14.5) Platelet Count 112 x10^3/uL (140-400) Neutrophils (%) (Auto) 84 % (31-73) Lymphocytes (%) (Auto) 7 % (24-48) Monocytes (%) (Auto) 9 % (0-9) Eosinophils (%) (Auto) 0 % (0-3) Basophils (%) (Auto) 0 % (0-3) Neutrophils # (Auto) 12.3 x10^3/uL (1.8-7.7) Lymphocytes # (Auto) 1.0 x10^3/uL (1.0-4.8) Monocytes # (Auto) 1.3 x10^3/uL (0.0-1.1) Eosinophils # (Auto) 0.0 x10^3/uL (0.0-0.7) Basophils # (Auto) 0.0 x10^3/uL (0.0-0.2) Procalcitonin 0.12 ng/mL (0.00-0.10) Assessment and Plan Assessmemt and Plan Problems Medical Problems: (1) Chest pain Status: Acute (2) Elevated troponin Status: Acute (3) Hypertension Status: Acut Chest pain rule out coronary disease Plan Await cardiac stress test results If stress test negative discharge If positive cardiology following might consider catheter DVT prophylaxis Full code Home meds Comment Review of Relevant I have reviewed the following items manav (where applicable) has been applied. Medications: Current Medications Medications (Trade) Dose Ordered Sig/Lucien Route PRN Reason Start Time Stop Time Status Last Admin Dose Admin Sodium Chloride 1,000 ml @ 75 mls/hr P20P11P IV 01/27/20 12:30 01/28/20 02:04 Morphine Sulfate (Morphine Sulfate) 2 mg PRN Q2HR PRN IV PAIN 01/28/20 02:00 01/28/20 10:14 Ondansetron HCl (Zofran) 4 mg PRN Q8HRS PRN IVP NAUSEA/VOMITING 01/28/20 02:15 01/28/20 02:20 Regadenoson (Lexiscan) 0.4 mg 1X ONCE IV 01/28/20 08:30 01/28/20 08:31 DC 01/28/20 08:30 ELZA HAYDEN III DO Jan 28, 2020 12:12
--- NOTE | 2020-01-28 12:14 | RAD ---
MR#: [id number] Date of Study: 01/28/2020 Ordering Physician: ANAIS CARLOS, Referring Physician: STEVEN DIAZ Tech: SUMMER Daniels ARRT (R) (N) APPROVED REPORT Test Type: Pharmacological Stress Nurse/Tech: Lily Bustamante R.N. Test Indications: chest pain, elevated trop Cardiac History: htn, high chol, Medications: see ehr Medical History: see ehr Resting ECG: sr with LBBB and ST depression Resting Heart Rate: 63 bpm Resting Blood Pressure: 154/76mmHg Pretest Chest Pain: Atypical angina Nurse/Tech Notes lungs cta, diminished Consent: The procedure was explained to the patient in lay terms. Informed consent was witnessed. Nilson eout was entered into [employer]. History and Stress Test performed by RT Concha (Roxy) (N) Pharm. Details Pharmacologic stress testing was performed using 0.4mg per 5ml of regadenoson given intravenously ove r 7-10 seconds. Stress Symptoms No chest pain or symptoms.Dyspnea POST EXERCISE Reason for Termination: Infusion complete Target HR: No Max HR: 85 bpm Max Blood Pressure: 158/79mmHg Chest Pain: Yes. Arrhythmia: No. ST Change: Yes. ST depression deepened in mult leads, no other changes INTERPRETATION Stress EKG Conclusion: Non-diagnostic EKG due to LBBB Imaging Protocol IMAGE PROTOCOL: Rest Tc-99m/stress Tc-99m 1 day Rest: Stress: Viability: Radiopharm.Tc99m TuxmkihzrYd59p Sestamibi Egjy79mOk 33mCi Img Date 01/28/2020 01/28/2020 Inj-Img Ouuj31wwu. 60min. Rest Admin Site:IV - Right AntecubitalAdministrator:SUMMER Daniels ARRT (R)(N) Stress Admin Site: IV - Right AntecubitalAdministrator: RT Debbie Kern)(N) STRESS DATA End Diast. Vol.152.0mlAv. Heart Rate68.0bpm End Syst. Vol.68.0mlCO Index BSA0.0L/min Myocardial Fyaf699.0gEject. Hoafoufc42.0% Stress Rates Pk. Fill Rate2.44EDV/secLVtime Pk. Fill 206.94msec Pk. Empty Rate2.58ESV/secLVtime Pk. Xsapf875.50msec 1/3 Pk. Fill0.84EDV/sec Stress Scores Regional WT0.00Summed WT4.00 Regional WM0.00Summed WM7.00 LV Perfusion Small fixed septal perfusion defect likely related to LBBB. No other ischemia or infarct noted. Wall Motion Normal EF at 60% LV Perf. Quant 17 Seg. SSS6.00 17 Seg. SRS4.00 17 Seg. SDS4.00 Stress Defect Extent (% LAD)18.80Rest Defect Extent (% LAD)5.00Rev. Defect Extent (% LAD)18.10 Stress Defect Extent (% LCX) 0.00Rest Defect Extent (% LCX)0.00Rev. Defect Extent (% LCX)0.00 Stress Defect Extent (% RCA)0.00Rest Defect Extent (% RCA)0.00Rev. Defect Extent (% RCA)0.00 Stress Defect Extent (% VIKA)9.10Rest Defect Extent (% VIKA)3.90Rev. Defect Extent (% VIKA)8.90 Other Information Quality:Average Risk Assessment: Moderate Risk Conclusion 1. Non-diagnostic EKG due to LBBB 2. Fixed Septal infarct pattern, likely due to LBBB. 3. No ischemia noted with normal EF of 60% 4. Overall, low to moderate risk study Signed by : Keith Yoder, Electronically Approved : 01/28/2020 12:14:27
[2020-01-28 12:25] VITALS: BP 156/84
--- NOTE | 2020-01-28 12:58 | PDOC ---
CARDIO Progress Notes Date and Time Date of Service 01/28/20 Time of Evaluation 1240 Subjective Subjective: No shortness of breath, No Palpitations, Other (chest pain with deep breathing. No dizziness, diaphoresis ) Vitals Vitals Vital Signs Date Time Temp Pulse Resp B/P (MAP) Pulse Ox O2 Delivery O2 Flow Rate FiO2 01/28/20 12:25 68 156/84 01/28/20 12:24 20 Nasal Cannula 2.0 01/28/20 10:47 98.5 95 98.5 Weight Weight [ ] Input and Output Intake and Output Intake and Output 01/28/20 06:59 Intake Total 580 ml Output Total 700 ml Balance -120 ml Intake Oral 0 ml IV Total 580 ml Output Urine Total 700 ml Laboratory Labs Laboratory Tests Test 01/27/20 13:45 01/27/20 18:10 01/28/20 03:03 01/28/20 10:20 Heparin Anti-Xa Act, Unfractionated 0.33 IU/mL (0.30-0.70) 0.27 IU/mL (0.30-0.70) 0.43 IU/mL (0.30-0.70) Lactic Acid Level 3.3 mmol/L (0.4-2.0) 3.2 mmol/L (0.4-2.0) 0.8 mmol/L (0.4-2.0) Troponin I Quantitative 0.078 ng/mL (0.000-0.055) White Blood Count 14.7 x10^3/uL (4.0-11.0) Red Blood Count 4.80 x10^6/uL (4.30-5.70) Hemoglobin 13.7 g/dL (13.0-17.5) Hematocrit 42.0 % (39.0-53.0) Mean Corpuscular Volume 87 fL (79-100) Mean Corpuscular Hemoglobin 29 pg (25-35) Mean Corpuscular Hemoglobin Concent 33 g/dL (31-37) Red Cell Distribution Width 15.1 % (11.5-14.5) Platelet Count 112 x10^3/uL (140-400) Neutrophils (%) (Auto) 84 % (31-73) Lymphocytes (%) (Auto) 7 % (24-48) Monocytes (%) (Auto) 9 % (0-9) Eosinophils (%) (Auto) 0 % (0-3) Basophils (%) (Auto) 0 % (0-3) Neutrophils # (Auto) 12.3 x10^3/uL (1.8-7.7) Lymphocytes # (Auto) 1.0 x10^3/uL (1.0-4.8) Monocytes # (Auto) 1.3 x10^3/uL (0.0-1.1) Eosinophils # (Auto) 0.0 x10^3/uL (0.0-0.7) Basophils # (Auto) 0.0 x10^3/uL (0.0-0.2) Procalcitonin 0.12 ng/mL (0.00-0.10) Physical Exam HEENT: Neck Supple W Full Motion Chest: Symmetric LUNGS: Clear to Auscultation Heart: S1S2, RRR Abdomen: Soft N/T Extremities: No Edema Neurology: alert, oriented, follow commands Assessment Assessment 1. Chest pain, atypical features. EKG with LBBB. No previous for comparison. No previous h/o CAD. Echo with preserved LV systolic function. MPI without evidence of ischemia 2. NSTEMI; peak 0.1. Most probably type II, demand ischemia 3. Hypotension; off Dopamine. Now maintaining s/p IVFs 4. Hyperlipidemia; LDL 94 5. COPD 6. GERD 7. H/o drug abuse. Recommendations Allergy to ASA May discontinue heparin from a CV standpoint Consider CT chest for further evaluation, will defer to primary given persistent CP Supportive care Addendum; patient went into asystole arrest followed by PEA. Extensive resuscitation efforts without ROSC. Please see code blue record for further details. ANAIS CARLOS APRN Jan 28, 2020 12:58
--- NOTE | 2020-01-28 13:05 | NUR ---
reats quietly with eyes closed. heparin infusion dc'd as ordered. ns continues to infuse
[2020-01-28] MEDS ORDERED: KETOROLAC 30 MG/ML VIAL. IVP ONE (13:45)
--- NOTE | 2020-01-28 13:59 | NUR ---
states the pain medication only works for a little time. denies being allergic to Toradol/ibuprofen/Advil
--- NOTE | 2020-01-28 14:10 | NUR ---
guard called out --Gary Juarez from [place] . patient was asystole. code called.
--- NOTE | 2020-01-28 14:59 | NUR ---
code called. fast patches accidently removed. guard at bedside Addendum: 01/28/20 at 1502 by ZULEMA COVARRUBIAS RN Dr. Blankenship requested covid post mortem. stated that it wasn't likely. No temp.
--- NOTE | 2020-01-28 15:32 | NUR ---
guard and lorelei here.
--- NOTE | 2020-01-28 15:41 | PDOC3 ---
Discharge Summary Date of Admission: Jan 27, 2020 Date of Discharge: Jan 28, 2020 Admitting Diagnosis comment: DISCHARGE DX Chest pain, rule out coronary artery disease. coded on 01/27 with PEA admitted. We will check serial enzymes, serial EKGs. Consult Cardiology. Home meds, deep thrombosis prophylaxis, heparin drip, dopaminedrip, replace mag. FINAL DIAGNOSIS Problems Medical Problems: (1) Chest pain Status: Acute (2) Elevated troponin Status: Acute (3) Hypertension Status: Acute Brief Hospital Course Mr. Vincent is a 69 old [sex] who presented with [ ANGINA] CONDITION AT DISCHARGE: / Discharge Medications Current Medications Morphine Sulfate (Morphine Sulfate) 2 mg 1X ONCE IV Last administered on 01/26/20at 23:00; Start 01/26/20 at 23:00; Stop 01/26/20 at 23:01; Status DC Ondansetron HCl (Zofran) 4 mg 1X ONCE IVP Last administered on 01/26/20at 23:05; Start 01/26/20 at 23:00; Stop 01/26/20 at 23:01; Status DC Ondansetron HCl (Zofran) 4 mg STK-MED ONCE .ROUTE ; Start 01/26/20 at 22:58; Stop 01/26/20 at 22:58; Status DC Morphine Sulfate (Morphine Sulfate) 2 mg STK-MED ONCE .ROUTE ; Start 01/26/20 at 22:58; Stop 01/26/20 at 22:58; Status DC Heparin Sodium (Porcine) (Heparin Sodium) 4,000 unit 1X ONCE IV Last administered on 01/26/20at 23:56; Start 01/26/20 at 23:45; Stop 01/26/20 at 23:46; Status DC Heparin Sodium/ Dextrose 250 ml @ 0 mls/hr CONT PRN IV PER PROTOCOL Last administered on 01/27/20at 20:25; Start 01/26/20 at 23:30; Stop 01/28/20 at 12:56; Status DC Heparin Sodium (Porcine) (Heparin Sodium) 2,400 unit PRN Q6HRS PRN IV FOR UFH LEVEL LESS THAN 0.2; Start 01/26/20 at 23:45; Stop 01/28/20 at 12:56; Status DC Ondansetron HCl (Zofran) 4 mg PRN Q8HRS PRN IV NAUSEA/VOMITING Last administered on 01/27/20at 04:07; Start 01/26/20 at 23:45; Stop 01/27/20 at 23:44; Status DC Morphine Sulfate (Morphine Sulfate) 2 mg PRN Q2HR PRN IV PAIN Last administered on 01/27/20at 21:00; Start 01/26/20 at 23:45; Stop 01/27/20 at 23:44; Status DC Acetaminophen (Tylenol) 650 mg PRN Q4HRS PRN PO FEVER; Start 01/26/20 at 23:45; Stop 01/27/20 at 23:44; Status DC Nitroglycerin (Nitro-Bid Oint) 0.5 inch 1X ONCE TP Last administered on 01/27/20at 00:08; Start 01/26/20 at 23:45; Stop 01/26/20 at 23:46; Status DC Magnesium Sulfate 50 ml @ 25 mls/hr 1X ONCE IV Last administered on 01/27/20at 03:29; Start 01/27/20 at 03:00; Stop 01/27/20 at 04:59; Status DC Dopamine HCl/ Dextrose 250 ml @ 35.1 mls/hr CONT PRN IV PER PROTOCOL Last administered on 01/27/20at 03:53; Start 01/27/20 at 03:00 Sodium Chloride 500 ml @ 500 mls/hr 1X ONCE IV Last administered on 01/27/20at 11:45; Start 01/27/20 at 11:45; Stop 01/27/20 at 12:44; Status DC Aspirin (Ecotrin) 81 mg [id number] PO ; Start 01/28/20 at 08:00; Status UNV Sodium Chloride 1,000 ml @ 75 mls/hr [id number] IV Last administered on 01/28/20at 02:04; Start 01/27/20 at 12:30 Amlodipine Besylate (Norvasc) 5 mg DAILY PO Last administered on 01/28/20at 12:25; Start 01/28/20 at 09:00 Tamsulosin HCl (Flomax) 0.8 mg DAILY PO Last administered on 01/28/20at 12:22; Start 01/28/20 at 09:00 Morphine Sulfate (Morphine Sulfate) 2 mg PRN Q2HR PRN IV PAIN Last administered on 01/28/20at 12:24; Start 01/28/20 at 02:00 Ondansetron HCl (Zofran) 4 mg PRN Q8HRS PRN IVP NAUSEA/VOMITING Last administered on 01/28/20at 02:20; Start 01/28/20 at 02:15 Regadenoson (Lexiscan) 0.4 mg 1X ONCE IV Last administered on 01/28/20at 08:30; Start 01/28/20 at 08:30; Stop 01/28/20 at 08:31; Status DC Ketorolac Tromethamine (Toradol 30mg Vial) 30 mg 1X ONCE IVP Last administered on 01/28/20at 13:59; Start 01/28/20 at 13:45; Stop 01/28/20 at 13:46; Status DC Active Scripts Active Reported [place] (Ciclesonide) 6.1 Gm Hfa.aer.ad 6.1 Gm IH Proair Hfa Inhaler (Albuterol Sulfate) 8.5 Gm Hfa.aer.ad 1 Puff INH PRN Q6HRS PRN Norvasc (Amlodipine Besylate) 5 Mg Tablet 5 Mg PO DAILY Flomax (Tamsulosin Hcl) 0.4 Mg Cap.er.24h 0.8 Mg PO DAILY Vital Signs Vital Signs Date Time Temp Pulse Resp B/P (MAP) Pulse Ox O2 Delivery O2 Flow Rate FiO2 01/28/20 12:55 20 Nasal Cannula 2.0 01/28/20 12:25 68 156/84 01/28/20 10:47 98.5 95 98.5 Labs Laboratory Tests Test 01/26/20 22:08 01/27/20 02:00 01/27/20 04:56 01/27/20 05:15 White Blood Count 8.5 x10^3/uL (4.0-11.0) 15.6 x10^3/uL (4.0-11.0) Red Blood Count 4.24 x10^6/uL (4.30-5.70) 5.26 x10^6/uL (4.30-5.70) Hemoglobin 12.4 g/dL (13.0-17.5) 14.9 g/dL (13.0-17.5) Hematocrit 36.7 % (39.0-53.0) 46.0 % (39.0-53.0) Mean Corpuscular Volume 87 fL (79-100) 88 fL (79-100) Mean Corpuscular Hemoglobin 29 pg (25-35) 28 pg (25-35) Mean Corpuscular Hemoglobin Concent 34 g/dL (31-37) 33 g/dL (31-37) Red Cell Distribution Width 14.8 % (11.5-14.5) 15.1 % (11.5-14.5) Platelet Count 154 x10^3/uL (140-400) 177 x10^3/uL (140-400) Neutrophils (%) (Auto) 64 % (31-73) Lymphocytes (%) (Auto) 25 % (24-48) Monocytes (%) (Auto) 9 % (0-9) Eosinophils (%) (Auto) 2 % (0-3) Basophils (%) (Auto) 1 % (0-3) Neutrophils # (Auto) 5.4 x10^3/uL (1.8-7.7) Lymphocytes # (Auto) 2.1 x10^3/uL (1.0-4.8) Monocytes # (Auto) 0.8 x10^3/uL (0.0-1.1) Eosinophils # (Auto) 0.2 x10^3/uL (0.0-0.7) Basophils # (Auto) 0.0 x10^3/uL (0.0-0.2) Sodium Level 141 mmol/L (136-145) Potassium Level 4.2 mmol/L (3.5-5.1) Chloride Level 106 mmol/L (98-107) Carbon Dioxide Level 27 mmol/L (21-32) Anion Gap 8 (6-14) Blood Urea Nitrogen 17 mg/dL (8-26) Creatinine 1.1 mg/dL (0.7-1.3) Estimated GFR (Cockcroft-Gault) 66.2 BUN/Creatinine Ratio 15 (6-20) Glucose Level 106 mg/dL (70-99) Calcium Level 9.4 mg/dL (8.5-10.1) Magnesium Level 1.8 mg/dL (1.8-2.4) Total Bilirubin 0.3 mg/dL (0.2-1.0) Aspartate Amino Transf (AST/SGOT) 29 U/L (15-37) Alanine Aminotransferase (ALT/SGPT) 31 U/L (16-63) Alkaline Phosphatase 60 U/L (46-116) Creatine Kinase 192 U/L (39-308) Creatine Kinase MB (Mass) 2.7 ng/mL (0.0-3.6) Creatine Kinase MB Relative Index 1.4 % (0-4) Troponin I Quantitative 0.081 ng/mL (0.000-0.055) 0.061 ng/mL (0.000-0.055) 0.101 ng/mL (0.000-0.055) SN-Lja-P-Type Natriuretic Peptide 195 pg/mL (0-124) Total Protein 6.1 g/dL (6.4-8.2) Albumin 3.1 g/dL (3.4-5.0) Albumin/Globulin Ratio 1.0 (1.0-1.7) Heparin Anti-Xa Act, Unfractionated 0.35 IU/mL (0.30-0.70) Triglycerides Level 53 mg/dL (0-150) Cholesterol Level 144 mg/dL (0-200) LDL Cholesterol, Calculated 94 mg/dL (0-100) VLDL Cholesterol, Calculated 11 mg/dL (0-40) Non-HDL Cholesterol Calculated 105 mg/dL (0-129) HDL Cholesterol 39 mg/dL (40-60) Cholesterol/HDL Ratio 3.7 Thyroid Stimulating Hormone (TSH) 1.539 uIU/mL (0.358-3.74) Test 01/27/20 07:25 01/27/20 13:45 01/27/20 18:10 01/28/20 03:03 Urine Collection Type Unknown Urine Color Yellow Urine Clarity Clear Urine pH 6.0 (<5.0-8.0) Urine Specific [place] 1.025 (1.000-1.030) Urine Protein Negative mg/dL (NEG-TRACE) Urine Glucose (UA) Negative mg/dL (NEG) Urine Ketones (Stick) Negative mg/dL (NEG) Urine Blood Negative (NEG) Urine Nitrite Negative (NEG) Urine Bilirubin Small (NEG) Urine Urobilinogen Dipstick 1.0 mg/dL (0.2 mg/dL) Urine Leukocyte Esterase Negative (NEG) Urine RBC 0 /HPF (0-2) Urine WBC 0 /HPF (0-4) Urine Bacteria 0 /HPF (0-FEW) Urine Mucus Marked /LPF Heparin Anti-Xa Act, Unfractionated 0.33 IU/mL (0.30-0.70) 0.27 IU/mL (0.30-0.70) Lactic Acid Level 3.3 mmol/L (0.4-2.0) 3.2 mmol/L (0.4-2.0) 0.8 mmol/L (0.4-2.0) Troponin I Quantitative 0.078 ng/mL (0.000-0.055) Test 01/28/20 10:20 01/28/20 14:25 White Blood Count 14.7 x10^3/uL (4.0-11.0) Red Blood Count 4.80 x10^6/uL (4.30-5.70) Hemoglobin 13.7 g/dL (13.0-17.5) Hematocrit 42.0 % (39.0-53.0) Mean Corpuscular Volume 87 fL (79-100) Mean Corpuscular Hemoglobin 29 pg (25-35) Mean Corpuscular Hemoglobin Concent 33 g/dL (31-37) Red Cell Distribution Width 15.1 % (11.5-14.5) Platelet Count 112 x10^3/uL (140-400) Neutrophils (%) (Auto) 84 % (31-73) Lymphocytes (%) (Auto) 7 % (24-48) Monocytes (%) (Auto) 9 % (0-9) Eosinophils (%) (Auto) 0 % (0-3) Basophils (%) (Auto) 0 % (0-3) Neutrophils # (Auto) 12.3 x10^3/uL (1.8-7.7) Lymphocytes # (Auto) 1.0 x10^3/uL (1.0-4.8) Monocytes # (Auto) 1.3 x10^3/uL (0.0-1.1) Eosinophils # (Auto) 0.0 x10^3/uL (0.0-0.7) Basophils # (Auto) 0.0 x10^3/uL (0.0-0.2) Heparin Anti-Xa Act, Unfractionated 0.43 IU/mL (0.30-0.70) Procalcitonin 0.12 ng/mL (0.00-0.10) Glucose (Fingerstick) 97 mg/dL (70-99) Laboratory Tests Test 01/27/20 18:10 01/28/20 03:03 01/28/20 10:20 01/28/20 14:25 Lactic Acid Level 3.2 mmol/L (0.4-2.0) 0.8 mmol/L (0.4-2.0) Heparin Anti-Xa Act, Unfractionated 0.27 IU/mL (0.30-0.70) 0.43 IU/mL (0.30-0.70) White Blood Count 14.7 x10^3/uL (4.0-11.0) Red Blood Count 4.80 x10^6/uL (4.30-5.70) Hemoglobin 13.7 g/dL (13.0-17.5) Hematocrit 42.0 % (39.0-53.0) Mean Corpuscular Volume 87 fL (79-100) Mean Corpuscular Hemoglobin 29 pg (25-35) Mean Corpuscular Hemoglobin Concent 33 g/dL (31-37) Red Cell Distribution Width 15.1 % (11.5-14.5) Platelet Count 112 x10^3/uL (140-400) Neutrophils (%) (Auto) 84 % (31-73) Lymphocytes (%) (Auto) 7 % (24-48) Monocytes (%) (Auto) 9 % (0-9) Eosinophils (%) (Auto) 0 % (0-3) Basophils (%) (Auto) 0 % (0-3) Neutrophils # (Auto) 12.3 x10^3/uL (1.8-7.7) Lymphocytes # (Auto) 1.0 x10^3/uL (1.0-4.8) Monocytes # (Auto) 1.3 x10^3/uL (0.0-1.1) Eosinophils # (Auto) 0.0 x10^3/uL (0.0-0.7) Basophils # (Auto) 0.0 x10^3/uL (0.0-0.2) Procalcitonin 0.12 ng/mL (0.00-0.10) Glucose (Fingerstick) 97 mg/dL (70-99) Allergies Allergies Coded Allergies Type Severity Reaction Last Updated Verified aspirin Allergy Severe breathing 06/05/19 Yes chlorpromazine Allergy Severe breathing 06/05/19 Yes mold Allergy Unknown 05/30/19 Yes Uncoded Allergies Type Severity Reaction Last Updated Verified DUST Allergy Unknown 05/30/19 Disposition/Orders: JULIET THOMAS MD Jan 28, 2020 15:41
--- NOTE | 2020-01-28 17:17 | NUR ---
body released to [facility]
--- NOTE | 2020-01-28 18:21 | PDOC ---
Progress Note: CODE BLUE was activated and 1409. Patient did not have pulse without chest compression. Patient was intubated at 1421. Hospitalist presented to the bedside and patient care transferred to Dr. Blankenship. Intubation Procedure Intubation Procedure Intub Indication: Respiratory failure Consent: Unable to give consent due to emergent nature. Medications Used: see nursing note Procedure: The patient was placed in the appropriate position. Intubation was performed today With visualization of vocal cords with kaleidoscope and 7.5 tube was placed and secured with device. Initial confirmation of placement included bilateral breath sounds, tube fogging, adequate chest rise, adequate pulse oximetry reading. Complications: none. NANCIE ELLIS MD Jan 28, 2020 18:21
--- NOTE | 2020-01-28 23:33 | DS ---
DATE OF DISCHARGE: 01/28/2020 SUMMARY DATE OF : 01/28/2020. HOSPITAL COURSE: The patient is a pleasant 69-year-old male who presented from [facility] with chest pain. He was admitted on a heparin drip. We consulted Cardiology. Today, the patient got a stress test that was negative. At that time, the heparin drip was stopped and we were considering letting him get back to the [facility] [place]. Unfortunately, this afternoon, he abhijit'd down and code blue was called. They were unable to resuscitate him. The patient was pronounced . We suspect he had a pulmonary embolism. ELZA HAYDEN DO DR: XANDER/cale JOB#: [id number] / [id number]
== END 2020-01-28 17:19 | disposition expired ==
LOC: EDBD → ER 22:02 → EEVIPCON 22:02 → 2 NORTH 01-27 00:22
PROVIDERS: ADMIT Internal Medicine; ATTEND Internal Medicine
PROC: 0BH17EZ Insertion of Endotracheal Airway into Trachea, Via Natural or Artificial Opening (ICD-10-PCS; principal; 2020-01-27)
DX: I21.4 Non-ST elevation (NSTEMI) myocardial infarction (principal); I26.99 Other pulmonary embolism without acute cor pulmonale; C43.9 Malignant melanoma of skin, unspecified; E11.9 Type 2 diabetes mellitus without complications; E78.5 Hyperlipidemia, unspecified; I10 Essential (primary) hypertension; I20.9 Angina pectoris, unspecified; I44.7 Left bundle-branch block, unspecified; I95.9 Hypotension, unspecified; J44.9 Chronic obstructive pulmonary disease, unspecified; K21.9 Gastro-esophageal reflux disease without esophagitis; Z82.49 Family history of ischemic heart disease and other diseases of the circulatory system; Z85.820 Personal history of malignant melanoma of skin; Z87.891 Personal history of nicotine dependence; K57.90 Diverticulosis of intestine, part unspecified, without perforation or abscess without bleeding; M19.90 Unspecified osteoarthritis, unspecified site; Z88.8 Allergy status to other drugs, medicaments and biological substances
CPT/HCPCS: 36415; 71045; 78452; 80053; 80061; 81001; 82553; 82962; 83605; 83735; 83880; 84145; 84443; 84484; 85025; 85027; 85520; 87040; 93005; 93017; 93306; A9500; J0171; J1265; J1644; J1885; J2270; J2405; J2785; J3475; J3490; J7030; J7040; G0378